=== PATIENT | male | born 1980 | race Caucasian/White ===

== ENCOUNTER 2016-06-25 12:32 | Emergency (ER) | payer OTHER ==
[~2016-06-25 12:32] MED LIST: CLEOCIN HCL300 M1 PO; FLEXERIL10 MG PO; LORTAB 5/500 TA1 TA1 PO; NAPROXEN PO; NO MEDICATIONS; TYLENOL #3 PO; ULTRAM PO
== END 2016-06-25 15:22 | disposition home or self-care (01) ==
LOC: CFTX 12:32 → CED 12:32 → CFTX 14:35
DX: L02.212 Cutaneous abscess of back [any part, except buttock and flank] (principal); F17.210 Nicotine dependence, cigarettes, uncomplicated
CPT/HCPCS: 10060; 99283

== ENCOUNTER 2016-06-27 14:14 | Emergency (ER) | payer OTHER | END 2016-06-27 14:45 | disposition home or self-care (01) | LOC: CED 14:14 → CFTX 14:14 | DX: Z48.00 Encounter for change or removal of nonsurgical wound dressing (principal) | CPT/HCPCS: 99281 ==